=== PATIENT | female | born 1950 | race Caucasian/White ===

== ENCOUNTER → 2016-08-14 | Outpatient (CLI) | payer MEDICARE | LOC: RAD 14:04 | PROVIDERS: ATTEND Urology | DX: N20.0 Calculus of kidney (principal); Z96.0 Presence of urogenital implants | CPT/HCPCS: 74000 ==

== ENCOUNTER → 2016-08-29 | Outpatient (CLI) | payer MEDICARE ==
[~2016-08-29] MED LIST: ALLO300T2 PO; ATOR80TA PO; BENA40TA5 PO; CLIN-78 PO; DOCU100C8 PO; FEXO180T PO; FURO40TA4 PO; GLIM4TAB PO; GLMP2T PO; HYDR-3702 PO; METF1000 PO; METH2.5T PO; MONT10TA21 PO; OMEP20CA6 PO; ONDA4TAB8 PO; OXYC1TAB87 PO; PARO40TA3 PO; POTA10CA2 PO; ROSU20TA PO; TAMS-8 PO
--- NOTE | 2016-08-29 12:25 | Diagnostic Imaging Report ---
PROCEDURE: CT abdomen without contrast. TECHNIQUE: Multiple contiguous axial images were obtained through the abdomen without the use of intravenous contrast. INDICATION: Right flank pain. Comparison with 03/27/2016. FINDINGS: Data Lead film shows double-J stent present in the right kidney and ureter to the bladder. Stent does extend into the renal pelvis. Pelvis is decompressed. Multiple calculi are again noted. Largest is in the renal pelvis. These have increased slightly in size since the previous exam. Larger shows mean Hounsfield unit of 700. The cortical cyst previously measured laterally in right kidney is unchanged again measuring just over 4 cm. Left kidney appears normal. Lung bases are clear. Liver is normal. Gallbladder is absent. Bile ducts are not dilated. Pancreas and spleen are normal. The adrenal glands are normal. Bowel gas pattern is normal. No intra-abdominal adenopathy is demonstrated. IMPRESSION: 1. Double-J stent is present with proximal portion visualized in the renal pelvis. There is decompression of the right kidney. 2. Multiple calculi in the renal pelvis and calyces are noted. Dictated by: Dictated on workstation # [id number]
== END ==
LOC: RAD 10:32
PROVIDERS: ATTEND Urology
DX: N20.2 Calculus of kidney with calculus of ureter (principal)
CPT/HCPCS: 74150